=== PATIENT | male | born 1960 | race Caucasian/White ===

== ENCOUNTER 2019-02-19 12:08 | Outpatient (CLI) | payer BC, SELFPAY ==
--- NOTE | 2019-02-19 11:10 | DI.RAD_ITS ---
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 There is mild periarticular spurring of the posterior patella. The joint spaces are otherwise well maintained. The bones are intact and normally mineralized. IMPRESSION: Mild degenerative changes of the patellofemoral joint.
== END 2019-02-19 12:28 ==
PROVIDERS: PCP Family Medicine; Visit Provider Family Medicine
DX: M25.562 Pain in left knee (principal); M17.12 Unilateral primary osteoarthritis, left knee; G89.29 Other chronic pain
CPT/HCPCS: 73562

== ENCOUNTER 2019-03-01 00:13 | Outpatient (CLI) | payer BC, SELFPAY ==
[2019-03-01 10:45] LABS: ALT 31 U/L (16-63); AST 17 U/L (15-37); Albumin 3.7 g/dL (3.4-5.0); Alkaline Phosphatase 119 U/L (46-116); Anion Gap 7.8 mmol/L (3-11); BUN 15 mg/dL (7-18); Bilirubin, Total 0.7 mg/dL (0.2-1.0); CO2 28.2 mmol/L (21.0-32.0); Calcium 8.7 mg/dL (8.5-10.1); Chloride 106 mmol/L (98-107); Glucose 89 mg/dL (70-100); Potassium 5.2 mmol/L (3.5-5.1); Sodium 142 mmol/L (136-145); Total Protein 6.6 g/dL (6.4-8.2)
[2019-03-03 10:43] LABS: PSA, Screening 1.1 ng/ml (0-3.5)
== END 2019-03-01 00:33 ==
PROVIDERS: PCP Family Medicine; Visit Provider Family Medicine
DX: N13.8 Other obstructive and reflux uropathy (principal); N40.1 Benign prostatic hyperplasia with lower urinary tract symptoms; Z00.00 Encounter for general adult medical examination without abnormal findings; Z12.5 Encounter for screening for malignant neoplasm of prostate
CPT/HCPCS: 36415; 80053; 84153

== ENCOUNTER 2021-03-31 03:23 | Outpatient (CLI) | payer BC, SELFPAY ==
[2021-03-31 10:25] LABS: ALT 37 U/L (16-63); AST 21 U/L (15-37); Albumin 4.1 g/dL (3.4-5.0); Alkaline Phosphatase 114 U/L (46-116); Anion Gap 5.9 mmol/L (3-11); BUN 15 mg/dL (7-18); Bilirubin, Total 0.8 mg/dL (0.2-1.0); CO2 29.1 mmol/L (21.0-32.0); CREATININE 1.1 mg/dL (0.70-1.30); Calcium 8.8 mg/dL (8.5-10.1); Chloride 104 mmol/L (98-107); Glucose 80 mg/dL (74-106); Potassium 4.6 mmol/L (3.5-5.1); Sodium 139 mmol/L (136-145); Total Protein 6.9 g/dL (6.4-8.2)
[2021-03-31 19:41] LABS: PSA, Screening 7.1 ng/mL (0.0-4.5)
== END 2021-03-31 03:24 | disposition home or self-care (01) ==
LOC: LBO 03:23
DX: Z00.00 Encounter for general adult medical examination without abnormal findings (principal); N13.8 Other obstructive and reflux uropathy; N40.1 Benign prostatic hyperplasia with lower urinary tract symptoms; Z12.5 Encounter for screening for malignant neoplasm of prostate
CPT/HCPCS: 36415; 80053; 84153

== ENCOUNTER 2021-05-24 02:47 | Outpatient (CLI) | payer BC, SELFPAY | END 2021-05-24 02:48 | disposition home or self-care (01) | LOC: LBO 02:47 | PROVIDERS: Visit Provider Nurse Practitioner Gerontology | DX: R97.20 Elevated prostate specific antigen [PSA] (principal) | CPT/HCPCS: 84154 ==

== ENCOUNTER 2021-11-17 16:46 | Outpatient (CLI) | payer BC, SELFPAY ==
[2021-11-18 19:34] LABS: PSA, Screening 1.1 ng/mL (<=4.5)
== END 2021-11-17 16:47 | disposition home or self-care (01) ==
LOC: LBO 16:47
PROVIDERS: Visit Provider Nurse Practitioner Gerontology
DX: R97.20 Elevated prostate specific antigen [PSA] (principal); Z12.5 Encounter for screening for malignant neoplasm of prostate
CPT/HCPCS: 36415; 84153

== ENCOUNTER 2022-05-15 02:59 | Outpatient (CLI) | payer BC, SELFPAY ==
[2022-05-15 09:41] LABS: ALT 35 U/L (16-63); AST 23 U/L (15-37); Albumin 3.8 g/dL (3.4-5.0); Alkaline Phosphatase 142 U/L (46-116); Anion Gap 4.6 mmol/L (3-11); BUN 16 mg/dL (7-18); Bilirubin, Total 0.7 mg/dL (0.2-1.0); CO2 29.4 mmol/L (21.0-32.0); CREATININE 1.1 mg/dL (0.70-1.30); Calcium 8.7 mg/dL (8.5-10.1); Chloride 103 mmol/L (98-107); Estimated GFR 76.37 (mL/min/1.73m2); Glucose 93 mg/dL (74-106); Potassium 4.2 mmol/L (3.5-5.1); Sodium 137 mmol/L (136-145)
[2022-05-15 20:22] LABS: PSA, Screening 1.1 ng/mL (<=4.5)
== END 2022-05-15 03:00 | disposition home or self-care (01) ==
LOC: LBO 02:59
PROVIDERS: PCP Nurse Practitioner Family; Visit Provider Nurse Practitioner Gerontology
DX: Z00.00 Encounter for general adult medical examination without abnormal findings (principal); N13.8 Other obstructive and reflux uropathy; N40.1 Benign prostatic hyperplasia with lower urinary tract symptoms; R97.20 Elevated prostate specific antigen [PSA]; Z12.5 Encounter for screening for malignant neoplasm of prostate
CPT/HCPCS: 36415; 80053; 84153

== ENCOUNTER 2022-06-27 12:38 | Outpatient (CLI) | payer BC, SELFPAY ==
--- NOTE | 2022-06-27 11:45 | DI.RAD_ITS ---
Exam(s) XR CERVICAL SP COMP W FLEX/EXT EXAM: XR CERVICAL SP COMP W FLEX/EXT CLINICAL HISTORY: right sided neck pain 2-3 months M54.2 CERVICALGIA. TECHNIQUE: 2D digital imaging was performed. COMPARISON: No exams were available for comparison FINDINGS: Eight views: There is no evidence of fracture, listhesis, nor offset of the spinal laminar line. Flexion and exte nsion do not elicit listhesis. There is moderate chronic-type disc space narrowing at C5-6 noted nor mal disc height at other levels including C6-7. On the oblique views there are this could joint oste ophyte on the left side at C5-6; none on the opposite side and none at C6-7 level. There are no cerv ical ribs. Mild degenerative changes in the facet joints. IMPRESSION: Chronic degenerative disc disease at C5-6 level but left-sided Luschka joint osteophytes evident at t his level. DATA REPOSITORY: RADIATION DOSE DELIVERED:
== END 2022-06-27 12:58 ==
LOC: DI 12:40
PROVIDERS: PCP Nurse Practitioner Family; Visit Provider Nurse Practitioner Family
DX: M50.322 Other cervical disc degeneration at C5-C6 level (principal)
CPT/HCPCS: 72052

== ENCOUNTER 2023-05-16 07:51 | Outpatient (CLI) | payer BC, SELFPAY ==
[2023-05-16 18:46] LABS: PSA, Screening 1.5 ng/mL (<=4.5)
== END 2023-05-16 07:52 | disposition home or self-care (01) ==
LOC: LBO 07:51
PROVIDERS: PCP Nurse Practitioner Family; Visit Provider Nurse Practitioner Gerontology
DX: N13.8 Other obstructive and reflux uropathy (principal); N40.1 Benign prostatic hyperplasia with lower urinary tract symptoms; R97.20 Elevated prostate specific antigen [PSA]
CPT/HCPCS: 36415; 84153

== ENCOUNTER 2023-06-30 15:54 | Outpatient (REF) | payer BC, SELFPAY ==
[2023-06-30 16:18] LABS: ALT 47 U/L (16-63); AST 29 U/L (15-37); Albumin 3.9 g/dL (3.4-5.0); Alkaline Phosphatase 151 U/L (46-116); Anion Gap 7.8 mmol/L (3-11); BUN 18 mg/dL (7-18); Bilirubin, Total 0.6 mg/dL (0.2-1.0); CO2 26.2 mmol/L (21.0-32.0); CREATININE 1.2 mg/dL (0.70-1.30); Calculated LDL 72 mg/dL (<100); Chloride 105 mmol/L (98-107); Cholesterol 185 mg/dL (<200); Estimated GFR 68.38 (mL/min/1.73m2); Glucose 119 mg/dL (74-106); HDL Cholesterol 57 mg/dL (40-60); Potassium 4.5 mmol/L (3.5-5.1); Sodium 139 mmol/L (136-145); Total Protein 6.9 g/dL (6.4-8.2); Triglyceride 283 mg/dL (<150)
== END 2023-06-30 15:55 | disposition home or self-care (01) ==
LOC: LBN 15:54
PROVIDERS: PCP Nurse Practitioner Family; Visit Provider Nurse Practitioner Family
DX: R73.9 Hyperglycemia, unspecified (principal); R74.8 Abnormal levels of other serum enzymes; Z13.220 Encounter for screening for lipoid disorders
CPT/HCPCS: 80053; 80061

== ENCOUNTER 2023-07-03 09:44 | Outpatient (CLI) | payer BC, SELFPAY ==
[2023-07-03 09:11] LABS: Hemoglobin A1C 5.3 % (<5.7)
== END 2023-07-03 09:45 | disposition home or self-care (01) ==
LOC: LBO 09:45
PROVIDERS: PCP Nurse Practitioner Family; Visit Provider Nurse Practitioner Family
DX: R73.9 Hyperglycemia, unspecified (principal)
CPT/HCPCS: 36415; 83036

== ENCOUNTER → 2023-07-23 02:28 | Outpatient (CLI) | payer BC, SELFPAY ==
--- NOTE | 2023-07-23 07:00 | DI.MRI_ITS ---
Exam(s) MR UPPER JOINT RT WO EXAM: MR UPPER JOINT RT WO CLINICAL HISTORY: SHOULDER ARTHRALGIA,M25.519. TECHNIQUE: Multiplanar multisequence MRI was performed. COMPARISON: CR XR SHOULDER RT COMPLETE 2+V from 07/23/2023 FINDINGS: BONES: There is no fracture or contusion pattern. JOINTS: There are degenerative changes seen at the acromioclavicular joint. Subchondral cysts are se en at the glenohumeral joint. The joint is otherwise well maintained. TENDONS: Supraspinatus: No evidence of a supraspinatus tendon tear. There is mild tendinosis of the supraspin atus tendon. Infraspinatus: Unremarkable. Subscapularis: There is tendinosis of the subscapularis tendon without evidence of a tear. Teres Minor: Unremarkable. Biceps and [place]: Unremarkable. MUSCLES: Unremarkable. GLENOID LABRUM: Unremarkable on this noncontrast examination. SOFT TISSUES: Unremarkable. LIGAMENTS: Unremarkable. OTHER: Subacromial and subdeltoid bursae are unremarkable. IMPRESSION: 1. Degenerative changes of the shoulder. 2. Mild tendinosis seen in the supraspinatus and subscapularis tendons without evidence of a tear. DATA REPOSITORY:
--- NOTE | 2023-07-23 07:00 | DI.RAD_ITS ---
Exam(s) XR SHOULDER RT COMPLETE 2+V EXAM: XR SHOULDER RT COMPLETE 2+V CLINICAL HISTORY: SHOULDER ARTHRALGIA,M25.519,NO IMPROVEMENT WITH PT. TECHNIQUE: 2D digital imaging was performed of the right shoulder. Five images were obtained. AP, Grashey, Y-view and axillary views were obtained. COMPARISON: No exams were available for comparison FINDINGS: BONES: No acute fracture is present. No bony destructive lesion is seen. JOINTS: No dislocation present. Mild degenerative changes are seen at the acromioclavicular and gleno humeral joints. SOFT TISSUE: Normal. IMPRESSION: Mild degenerative changes of the right shoulder. DATA REPOSITORY: RADIATION DOSE DELIVERED:
--- NOTE | 2023-07-23 07:00 | DI.MRI_ITS ---
Exam(s) MR CERVICAL SPINE WO EXAM: MR CERVICAL SPINE WO CLINICAL HISTORY: NECK PAIN,M54.2,SHOULDER ARTHRALGIA,NO IMPROVEMENT WITH PT TECHNIQUE: Multiplanar multisequence MRI of the cervical spine was performed without intravenous con trast. COMPARISON: CR XR CERVICAL SP COMP W FLEX/EXT from 06/27/2022 FINDINGS: BONES: Vertebral body heights are maintained. Intervertebral disc spaces are normal. Alignment is nor mal. Bone marrow signal intensity is within normal limits. CERVICAL CORD: Craniovertebral junction is unremarkable. The cervical cord is normal size and signal intensity. SOFT TISSUES: Unremarkable. C2-3: No disc herniation or bulge is identified. No significant central spinal canal or neural forami nal stenosis. C3-4: No disc herniation or bulge is identified. No significant central spinal canal or neural forami nal stenosis C4-5: There are hypertrophic changes of the facets on the right with prominence of the uncovertebral joint. No significant central spinal canal or left neural foraminal stenosis is present. There is m oderate right neural foraminal stenosis. C5-6: There are degenerative changes of the uncovertebral joint on the left. There is no central spi nal canal or right neural foraminal stenosis. There is moderately severe left neural foraminal steno sis. C6-7: No disc herniation or bulge is identified. No significant central spinal canal or neural forami nal stenosis C7-T1: No disc herniation or bulge is identified. No significant central spinal canal or neural lauryn inal stenosis IMPRESSION: 1. Degenerative changes on the left at the uncovertebral joints causing moderately severe left neural foraminal stenosis at C5-C6. 2. Degenerative changes of the facets and uncovertebral joint on the right at C4-5 causing moderate r ight neural foraminal stenosis. DATA REPOSITORY:
== END ==
PROVIDERS: PCP Nurse Practitioner Family; Visit Provider Nurse Practitioner Family
DX: M19.011 Primary osteoarthritis, right shoulder (principal); M50.122 Cervical disc disorder at C5-C6 level with radiculopathy; M99.61 Osseous and subluxation stenosis of intervertebral foramina of cervical region
CPT/HCPCS: 72141; 73030; 73221

== ENCOUNTER → 2023-10-11 03:31 | Outpatient (CLI) | payer BC, SELFPAY ==
--- NOTE | 2023-10-11 14:58 | DI.RAD_ITS ---
Exam(s) RF JOINT INJECTION FLUORO GUID EXAM: RF JOINT INJECTION FLUORO GUID CLINICAL HISTORY: arthritis rt gh joint, m19.011, pain,fluoro guided injection. The Patient has had persistent right shoulder pain. Noninvasive measures have been tried. To serve as both diagnostic and therapeutic, an injection under fluoroscopy was recommended. The risks of the procedure were dis cussed with their Orthopedic provider and the patient elected to proceed. TECHNIQUE: 2D and realtime digital imaging was performed. CONTRAST MATERIAL: Water soluble contrast was utilized. COMPARISON: No exams were available for comparison FINDINGS: The Patient was greeted in the fluoroscopy room. The correct side was identified and the consent was reviewed with the patient and was signed. The patient was properly positioned on the fluoroscopy ta ble. The right shoulderwas then prepped with Chloraprep and draped. The right shoulder injection st arting point was identified by the bony landmarks and fluoroscopy. The skin and soft tissue in the t ract of the injection was anesthetized with 1% Lidocaine. A spinal needle was then inserted into the right shoulder joint at the level of the glenohumeral joint under fluoroscopic guidance. A small am ount of Omnipaque solution was injected to confirm intraarticular placement. Once confirmed, the gle nohumeral joint was injected with 5cc of a solution containing 0.5% Bupivaine and 80 mg of Depo-Medro l. A bandaid was placed on the injection site. The patient tolerated the procedure well and left e department in good condition. IMPRESSION: Successful right shoulder injection. RADIATION DOSE DELIVERED: Ka,r=2.26 mGy
[2023-10-11] MEDS: Normal Saline - Diluent 50 ML VIAL 10 ML IJ (14:59)
[2023-10-11] MEDS: Omnipaque 300 MG/ML 10 ML BTL 5 ML IJ (15:00)
[2023-10-11] MEDS: Bupivacaine 0.5% Pres-Free 10 ML VIAL IJ (15:01)
[2023-10-11] MEDS: methylPREDNISolone ACETATE 80 MG/ML VIAL IM (15:02)
== END ==
PROVIDERS: PCP Nurse Practitioner Family; Visit Provider Student in an Organized Health Care Education/Training Program
DX: M19.011 Primary osteoarthritis, right shoulder (principal); M25.511 Pain in right shoulder
CPT/HCPCS: 20610; 77002; J0665; J1010

== ENCOUNTER 2024-05-14 02:16 | Outpatient (CLI) | payer BC, SELFPAY ==
[2024-05-14 18:26] LABS: PSA, Screening 1.4 ng/mL (<=4.5)
== END 2024-05-14 02:17 | disposition home or self-care (01) ==
LOC: LBO 02:16
PROVIDERS: PCP Nurse Practitioner Family; Visit Provider Nurse Practitioner Gerontology
DX: R39.9 Unspecified symptoms and signs involving the genitourinary system (principal); N40.1 Benign prostatic hyperplasia with lower urinary tract symptoms; N13.8 Other obstructive and reflux uropathy; Z87.898 Personal history of other specified conditions
CPT/HCPCS: 36415; 84153

== ENCOUNTER 2024-06-26 16:16 | Outpatient (CLI) | payer BC, SELFPAY ==
[2024-06-26 17:19] LABS: ALT 28 U/L (16-63); AST 22 U/L (15-37); Albumin 3.9 g/dL (3.4-5.0); Alkaline Phosphatase 152 U/L (46-116); BUN 15 mg/dL (7-18); Bilirubin, Total 0.55 mg/dL (0.2-1.0); CREATININE 1.1 mg/dL (0.70-1.30); Calculated LDL 84 mg/dL (<100); Chloride 102 mmol/L (98-107); Cholesterol 173 mg/dL (<200); Estimated GFR 75.43 (mL/min/1.73m2); Glucose 93 mg/dL (74-106); HDL Cholesterol 69 mg/dL (40-60); Potassium 4.5 mmol/L (3.5-5.1); Sodium 139 mmol/L (136-145); Triglyceride 100 mg/dL (<150)
== END 2024-06-26 16:17 | disposition home or self-care (01) ==
LOC: LBO 16:26
PROVIDERS: PCP Nurse Practitioner Family; Visit Provider Nurse Practitioner Family
DX: R73.9 Hyperglycemia, unspecified (principal); Z13.220 Encounter for screening for lipoid disorders
CPT/HCPCS: 36415; 80053; 80061

== ENCOUNTER 2025-02-16 10:16 | Day surgery (SDC) | payer BC, SELFPAY ==
--- NOTE | 2025-02-15 16:36 | PDOC.DSDIS_ITS ---
Date of service: 02/16/25 Discharge Plan Disposition Patient Disposition: Home Condition: Good Discharge Details Reason For Visit: screening colonoscopy Attending Provider: Chi Thomas Primary Care Provider: Johny Bynum Home Meds and New Rx's Prescriptions: Continued ibuprofen 200 mg capsule 400 mg PO Q6H PRN multivitamin [Daily Vitamin] 1 EACH tablet 1 tab PO DAILY jaktezfz-zyso-ybbqwo-hyalur ac 1 EACH capsule 1 cap PO DAILY aspirin [Aspir-81] 81 MG tablet,delayed release (DR/EC) 81 mg PO DAILY Discontinued bisacodyl [Dulcolax (bisacodyl)] 5 mg tablet,delayed release (DR/EC) 5 mg PO ONCE Qty: 4 0RF Rx Instructions: Take per colonoscopy instructions provided by ordering providers office polyethylene glycol 3350 17 gram/dose powder 17 g PO ONCE Qty: 238 0RF Rx Instructions: Take per colonoscopy instructions provided by ordering providers office Discharge Instructions Additional Instructions: Mich, it was a pleasure meeting you today. I hope you feel well after the procedure. Things went very smoothly. Your prep was excellent and everything a ppeared just fine. I did not see any signs of tumors, polyps, or anything at all worrisome. With the negative screening colonoscopy today, I recommend a 10- year interval for your next one. If you need anything or have any questions at all, please do not hesitate to ask. 1. If tolerated, consume a soft, low fiber diet for 1-2 days. 2[address] Do not drive, drink alcohol, operate machinery, make critical decisions, or do activities that require coordination or balance for 24 hours. 3. Because air was put into your colon during the procedure, expelling air from your rectum (passing gas or farting) is normal. 4. You may not have a bowel movement for 1-3 days because of the colonoscopy prep. This is normal. 5. Go directly to the emergency room if you notice any of the following: Develop chills (warm to touch), or if you have a thermometer and your temperature is above 101 Difficulty breathing or difficultly swallowing Persistent vomiting Severe abdominal pain, other than gas cramps Severe chest pain Black, tarry stools Any bleeding ? exceeding one tablespoon 6. Call your physician if the site where your intravenous was started becomes red, swollen, painful, and warm to touch. 7. Your physician has reviewed your pre-procedure medications. Please continue to take those medications as previously ordered. You will be given specific information/education regarding any changes to your medications before leaving. Activity:: Activity as Tolerated Diet:: As Tolerated Discharge Orders Discharge Orders: Discharge Order (Routine); Ordered 02/15/25 Ordered By: Chi Thomas DS: Diagnosis Discharge Diagnosis (1) Encounter for screening colonoscopy: Status: Acute Asessment and Plan: Negative screening colonoscopy. Follow-up in 10 years
--- NOTE | 2025-02-15 16:37 | W.COLOREPORT ---
Date of service: 02/16/25 Time of Service: 13:03 Colonoscopy Report Date of procedure: 02/16/25 Pre-op diagnosis general: screening colonoscopy Post-op diagnosis procedure note: other (Negative screening colonoscopy) Procedure: colonoscopy Surgeon: Chi Thomas Anesthesia Type: General:No Airway Estimated blood loss (mL): 0 Pathology: none sent Complications: None Disposition: same day Indications: Mich is a 64 year old woman who needs a screening colonoscopy Prep: Miralax/Dulcolax Procedure Start Time: 12:28 Procedure End Time: 12:43 Retraction Time: 8 Findings: Normal screening colonoscopy Procedure Description: After the induction of anesthesia, and with the patient in left lateral decubitus position, I began by performing an external anorectal exam.? Perineum and skin were normal, as was the anal verge.? There was no evidence of external hemorrhoids.? Next, I performed a digital rectal exam.? I did not appreciate any abnormal findings.? Next, I advanced a colonoscope into the rectal vault.? I performed retroflexion.? This appeared normal.? Using insufflation, I then advanced the colonoscope beyond the rectal folds and into the sigmoid colon before advancing towards the cecum.? The quality of the prep was excellent.? The scope was noted to be in the cecum by identification of the ileocecal valve and appendiceal orifice.? I then began withdrawing the colonoscope using repeated irrigation as necessary for full evaluation of the colonic mucosa. ?Once the scope was withdrawn to the level of the rectum, great care was taken to examine portions of the rectal folds. I saw no signs of tumors, polyps, or any other pathology.? Finally, the scope was withdrawn and the patient was brought to the same-day surgery recovery unit as the anesthetic wore off. ?The findings and instructions were shared with the patient prior to discharge. [place] Bowel Prep [place] Bowel Prep Right Colon: 3 Left Colon: 3 Transverse Colon: 3 Total Score: 9
--- NOTE | 2025-02-15 18:53 | W.ANESPRE ---
General Info Date of Service Date Performed: 02/16/25 Height: 5 ft 8.5 in Weight: 83.007 kg Body Mass Index (BMI): 27.4 Surgical Procedure: Operation Date: 02/16/25 12:05 Proposed Procedure Side Surgeon rosalind Thomas MD Meds Allergies and Home Medications Allergies Allergy/AdvReac Type Severity Reaction Status Date / Time No Known Allergies Allergy Verified 02/16/25 10:59 Home Medication ?Medication ?Instructions ?Recorded aspirin 81 mg tablet,delayed 81 mg PO DAILY 10/25/12 release (Aspir-) glucosamin 375 mg-chond 300 1 cap PO DAILY 10/20/14 mg-collagen 50 mg-hyaluronic acid 2 mg cap multivitamin (Daily Vitamin tablet) 1 tab PO DAILY 10/20/14 ibuprofen 200 mg capsule 400 mg PO Q6H PRN 07/15/20 Current Visit Medications: Current Medications Generic Name Dose Route Start Last Admin Trade Name Freq PRN Reason Stop Dose Admin Ringer's Solution 1,000 mls @ 80 mls/hr 02/16/25 06:00 IV 03/15/25 23:59 INFUSION ISIDRO IV Miscellaneous Supplies 1 each 02/16/25 06:00 Iv Access IV 03/15/25 23:59 DIRECTED ISIDRO Ondansetron HCl 4 mg 02/15/25 16:38 Ondansetron 4 Mg/2 Ml Vial IVP 03/17/25 16:37 Q4H PRN PRN Nausea / Vomiting Sodium Chloride 0 ml 02/16/25 06:00 Normal Saline Flush 10 Ml Syr IV 03/15/25 23:59 PRN PRN Sodium Chloride 0 ml 02/16/25 06:00 Normal Saline 10 Ml Vial IJ 03/15/25 23:59 DIRECTED PRN Sterile Water 0 ml 02/16/25 06:00 Water,Injection,Sterile 10 Ml Vial IJ 03/15/25 23:59 DIRECTED PRN PFSH Active Problems Active Problems: Problem Status Onset Code Bilateral hand pain Acute M79.641, M79.642 Right knee pain Acute M25.561 Arthritis of right glenohumeral joint Acute M19.011 Neural foraminal stenosis of cervical spine Acute M48.02 Hyperglycemia Acute R73.9 History of elevated PSA Acute Z87.898 Elevated alkaline phosphatase level Acute R74.8 Neck pain Acute M54.2 Shoulder arthralgia Acute M25.519 Encounter for annual physical exam Acute Z00.00 Elevated PSA Acute R97.20 Impacted cerumen of both ears Acute H61.23 Prostate cancer screening information given during patient encounter Acute Z12.5 Left wrist pain Acute M25.532 Cyst of epididymis Acute N50.3 Shortness of breath Acute 11/23/17 R06.02 Primary osteoarthritis involving multiple joints Acute 11/17/16 M15.0 Myocardial infarction Acute 05/24/84 I21.9 Multiple lipomas Acute 11/23/17 D17.9 Epistaxis, recurrent Acute 02/16/15 R04.0 BPH w urinary obs/LUTS Acute 11/17/16 N40.1, N13.8 Medical History Medical History Metatarsalgia, left foot (11/23/17) [place] (myocardial infarction) due to vasospasm at age 25 Surgical History Surgical History Colonoscopy - IV Sedation (03/08/15) DR.ANNICK ROMERO Tobacco Smoking/Tobacco Use Status: Never Passive smoking exposure: Yes Second hand exposure: No Alcohol Alcohol Intake: current Alcohol intake frequency: a few times a month Alcohol type: hard liquor Substance Use Substance use: Never Substance use type: does not use Vital Signs and Lab Results Vital Signs Most Recent Vital Signs in EMR: Temp Pulse Resp BP Pulse Ox 36.4 C L 57 L 16 125/79 98 02/16/25 11:01 02/16/25 11:01 02/16/25 11:01 02/16/25 11:01 02/16/25 11:01 Anesthesia Assessment and Plan Anesthesia History Personal History: No History of Anesthesia Complications Family History: No Family History of Anesthesia Complications Exercise Tolerance Exercise Tolerance: Metabolic Equivalents>4 Cardiac & Pulmonary Exam Cardiac Exam: Normal S1/S2 Heart Sounds Pulmonary Exam: Clear Bilateral Breath Sounds Implantable Cardiac Device Does patient have a Pacemaker or an ICD?: No Airway Exam Known Difficult Airway: No Mallampati Class: 3 Mouth Opening: Normal (> 3cm) Thyromental Distance: Less than 3 cm Neck Range of Motion: Full ROM Neck Circumference: Normal Teeth Condition: Normal Dentition and Generalized Poor Dentition ASA Classification ASA Score: ASA 2 Emergency Case?: No NPO Status NPO Status: NPO Clears >2 hours, Solids >8 hours Anesthesia Plan Resuscitation Status: Full Code Anesthesia Technique: General Anesthesia Airway Planned: Natural Airway Monitors Used: Standard Monitors Preoperative Comments:: 64 yo colo. Sig PMHx: chest pain/vasospasm, ECHO: LVEF 50-55%, mild MR,
[2025-02-16 11:01] VITALS: BP 125/79; PULSE 57; RESP 16; TEMP 36.4; O2SAT 98
[2025-02-16] MEDS: Lactated Ringers 1,000 ML 80 ML IV (11:21)
[2025-02-16 12:13] VITALS: BMI 27.4
[2025-02-16 12:49] VITALS: BP 106/75; PULSE 58; RESP 16; TEMP 36.5; O2SAT 95
--- NOTE | 2025-02-16 12:51 | W.ANESPOSTOP ---
Postoperative Evaluation Date, Time and Location Date Performed: 02/16/25 Time Performed: 12:52 Patient Location: Day Surgery Unit Vital Signs Most Recent Imported Vital Signs: Most Recent Vital Signs Temp Pulse Resp BP Pulse Ox 36.5 C 58 L 16 106/75 95 02/16/25 12:49 02/16/25 12:49 02/16/25 12:49 02/16/25 12:49 02/16/25 12:49 Pain Score Most Recent Pain Score: Most Recent Pain Score Pain Level 2 02/16/25 11:01 Assessment Mental Status: Arousable with meaningful communication Airway and Respiratory Function: Patent airway with normal (patient baseline) respiratory exam Cardiovascular Function: Hemodynamically Stable Hydration Status: Adequately Hydrated Nausea & Vomiting: No Nausea or Vomiting Pain: Pt. Denies Any Pain Peripheral Nerve Block: Patient did not receive a nerve block
[2025-02-16 13:10] VITALS: BP 105/77; PULSE 61; RESP 19; TEMP 36.5; O2SAT 96
== END 2025-02-16 13:48 | disposition home or self-care (01) ==
LOC: SUR 10:17
PROVIDERS: PCP Nurse Practitioner Family; Visit Provider Surgery
PROC: 0DJD8ZZ Inspection of Lower Intestinal Tract, Via Natural or Artificial Opening Endoscopic (ICD-10-PCS; CPT 45378; principal; 2025-02-16 12:00)
DX: Z12.11 Encounter for screening for malignant neoplasm of colon (principal)
CPT/HCPCS: 45378; J2704

== ENCOUNTER 2025-05-20 02:15 | Outpatient (CLI) | payer BC, SELFPAY ==
[2025-05-20 18:26] LABS: PSA, Screening 1.5 ng/mL (<=4.5)
== END 2025-05-20 02:16 | disposition home or self-care (01) ==
LOC: LBO 02:15
PROVIDERS: PCP Nurse Practitioner Family; Visit Provider Nurse Practitioner Gerontology
DX: R39.9 Unspecified symptoms and signs involving the genitourinary system (principal); Z87.898 Personal history of other specified conditions
CPT/HCPCS: 36415; 84153